=== PATIENT | male | born 1955 ===

== ENCOUNTER 2017-10-18 07:10 | Day surgery (SDC) | payer OTHER ==
[~2017-10-18] VITALS: Ht 190.5 cm; Wt 98.2 kg
[~2017-10-18 07:10] MED LIST: ASPI81CH; CHOL10002; Hair, Skin & N1 EACH; Omeprazole20 M1; PRAV20; Papaya1 EAC1; Prinivil10 MG
== END 2017-10-18 09:20 | disposition home or self-care (01) ==
LOC: ORSCSDS 07:10
PROVIDERS: Surgery
PROC: 0DBL8ZX Excision of Transverse Colon, Via Natural or Artificial Opening Endoscopic, Diagnostic (ICD-10-PCS; principal; 2017-10-18 08:30)
DX: Z12.11 Encounter for screening for malignant neoplasm of colon (principal); K63.5 Polyp of colon; Z86.010 Personal history of colon polyps; I10 Essential (primary) hypertension; E78.5 Hyperlipidemia, unspecified; Z79.82 Long term (current) use of aspirin; Z79.899 Other long term (current) drug therapy
CPT/HCPCS: 88305